=== PATIENT | male | born 1930 ===

== ENCOUNTER 2016-07-25 10:52 | Inpatient (IN) | payer MEDICARE ==
[2016-07-25 11:43] LABS: Basophils % (Auto) 0.7 % (0.0-1.8); Eosinophils % (Auto) 2.8 % (0.0-4.3); Hematocrit 35.2 % (35.5-45.6); Hemoglobin 11.2 gm/dl (11.8-15.2); Mean Corpuscular HGB Conc 32 % (32-34); Mean Corpuscular Hemoglobin 31 pg (28-32); Mean Corpuscular Volume 98 fl (84-94); Platelet Count 201 K/mm3 (140-440); Red Cell Distribution Width 15.9 % (13.2-15.2); White Blood Count 6.8 K/mm3 (4.5-11.0)
[2016-07-25 11:59] LABS: Calcium 8.7 mg/dL (8.4-10.2); Chloride 102.4 mmol/L (98-107); Potassium 4.5 mmol/L (3.6-5.0)
--- NOTE | 2016-07-25 11:59 | XRay Report ---
CHEST 2 VIEWS INDICATION: Shortness of breath. COMPARISON: None similar at this institution. FINDINGS: PA and lateral chest radiographs demonstrate bibasilar densities/pleural effusions obscuring the hemidiaphragms, left more than right. No overt CHF. Normal cardiomediastinal silhouette. Aortic knob calcifications. Mild biapical scarring/pleural thickening. Possible old healed granulomatous disease with a 3 mm peripheral right midlung granuloma. Multilevel thoracic spine degenerative spurring/DISH. Few upper abdominal radiodensities may possibly lie in the soft tissues posteriorly. CONCLUSION: Bibasilar opacities/effusions and few other findings, as above. Please also correlate clinically and with prior chest imaging, if available. Thank you for the opportunity to participate in this patient's care.
[2016-07-25] MEDS ORDERED: ECOTRIN PO ONE (12:55)
--- NOTE | 2016-07-25 13:03 | Emergency Department Report ---
ED Chest Pain HPI - General Chief Complaint: Chest Pain Stated Complaint: CHEST PAIN/SOB Time Seen by Provider: 07/25/16 12:45 Source: patient, RN notes reviewed Mode of arrival: Ambulatory Limitations: Language Barrier - History of Present Illness Initial Comments: 85-year-old male presents to the emergency department from his primary care physician's office complaining of chest pain. Patient states he has been having intermittent substernal chest pain for 2-3 weeks. Pain is described as heaviness. He denies radiation of the pain. He reports associated shortness of breath, but denies dizziness, diaphoresis, nausea, or vomiting. Patient is pain-free at this time. There are no other complaints. MD Complaint: chest pain -: Gradual, week(s) (3) Onset: during rest Pain Location: substernal Pain Radiation: none Severity: moderate Severity scale (0 -10): 6 Quality: heaviness Consistency: intermittent, now resolved Improves With: nothing Worsens With: nothing re: dyspnea. denies: nausea, vomting, diaphoresis Treatments Prior to Arrival: none Aspirin use within the Past 7 Days: (0) No - Related Data Allergies Allergy/AdvReac Type Severity Reaction Status Date / Time No Known Allergies Allergy Unverified 07/25/16 11:22 YASMEEN score - Yasmeen Score Age > 65: (1) Yes Aspirin use within the Past 7 Days: (0) No 3 or more CAD Risk Factors: (0) No 2 or more Angina events in past 24 hrs: (1) Yes Known CAD with more than 50% Stenosis: (0) No Elevated Cardiac Markers: (1) Yes ST Deviation Greater than 0.5mm: (0) No YASMEEN Score: 3 ED Review of Systems ROS: Stated complaint: CHEST PAIN/SOB Other details as noted in HPI Comment: All other systems reviewed and negative Respiratory: shortness of breath Cardiovascular: chest pain ED Past Medical Hx - Past Medical History Previous Medical History?: Yes Hx Hypertension: Yes Additional medical history: HIGH CHOLESTEROL - Surgical History Past Surgical History?: No - Family History Family history: no significant - Social History Smoking Status: Never Smoker Substance Use Type: None ED Physical Exam - General Limitations: Language Barrier General appearance: alert, in no apparent distress - Head Head exam: Present: atraumatic, normocephalic - Eye Eye exam: Present: normal appearance, PERRL, EOMI - ENT ENT exam: Present: normal exam, normal orophraynx, mucous membranes moist - Neck Neck exam: Present: normal inspection, full ROM. Absent: tenderness - Respiratory Respiratory exam: Present: normal lung sounds bilaterally. Absent: respiratory distress - Cardiovascular Cardiovascular Exam: Present: regular rate, normal rhythm, normal heart sounds - GI/Abdominal GI/Abdominal exam: Present: soft, normal bowel sounds. Absent: distended, tenderness - Extremities Exam Extremities exam: Present: normal inspection, full ROM. Absent: tenderness - Back Exam Back exam: Present: normal inspection, full ROM. Absent: tenderness - Neurological Exam Neurological exam: Present: alert, oriented X3. Absent: motor sensory deficit - Skin Skin exam: Present: warm, dry, intact ED Course Vital Signs 07/25/16 07/25/16 07/25/16 11:00 12:28 12:29 Temperature 97.1 F L 97.5 F L Pulse Rate 89 91 H Respiratory 18 25 H 25 H Rate Blood Pressure 116/76 Blood Pressure 126/75 [Left] O2 Sat by Pulse 100 98 98 Oximetry ED Medical Decision Making - Lab Data Result diagrams: 07/25/16 11:25 07/25/16 11:25 - EKG Data -: EKG Interpreted by Me EKG shows normal: sinus rhythm, axis, intervals, QRS complexes Rate: normal - EKG Data When compared to previous EKG there are: no significant change Interpretation: nonspecific ST-T wave dominik - Radiology Data Radiology results: image reviewed interpreted by me: Chest x-ray shows a small left lower lobe effusion. - Medical Decision Making Lab and imaging results reviewed and discussed with the patient. Patient does have some renal insufficiency and a slightly elevated troponin. There are no previous for comparison. I have spoken with Jerry Vaughan with a [facility]. Patient will be admitted by the hospitalist. - Differential Diagnosis ACS, atypical chest pain, pneumonia Critical care attestation.: If time is entered above; I have spent that time in minutes in the direct care of this critically ill patient, excluding procedure time. ED Disposition Clinical Impression: Chest pain at rest, Elevated troponin Disposition: OP ADMITTED IP TO THIS HOSP Is pt being admited?: Yes Condition: Stable Instructions: Chest Pain (ED) Referrals: PRIMARY CARE, [Primary Care Provider] - 3-5 Days Time of Disposition: 13:07
--- NOTE | 2016-07-25 13:32 | Admit Criteria Form ---
Admission Criteria Documentation: CHEST PAIN Clinical Indications for Admission to Inpatient Care (Place 'X' for any and all applicable criteria): Admission is indicated for chest pain and ANY ONE of the following(1)(2)(3)(4)(5 ): [ ]I. Angina with acute coronary syndrome (Also use Myocardial Infarction or Angina guideline) [ ]II. Hemodynamic instability [X ]III. Angina needing acute intervention as indicated by ALL of the following (11)(12): [X ]a) Unstable angina is present as indicated by angina that is ANY ONE of the following: [ ]i) New onset [ ]ii) Nocturnal [X ]iii) Prolonged at rest [ ]iv) Progressive [ X]b) Angina warrants acute intervention as indicated by ANY ONE of the following: [ ]i) Recurrent angina (e.g, not responding as previously to treatment) [ ]ii) Angina at rest or with low-level activities despite initial medical therapy [ ]iii) New or presumably new ST-segment depression on ECG [ ]iv) Signs or symptoms of heart failure (eg, dyspnea, pulmonary edema) [ ]v) New or worsening mitral regurgitation [ ]vi) Hemodynamic instability [ ]vii) Dangerous arrhythmia (eg, sustained ventricular tachycardia) [ ]viii) History of percutaneous coronary intervention within 6 months [ ]ix) History of coronary artery bypass graft surgery [X ]x) YASMEEN risk score of 2 or greater[A] [ ]xi) History of Diabetes(14) [ ]xii) High-risk cardiac ischemia findings on noninvasive testing (e.g, echocardiogram, treadmill testing, nuclear scan) [ ]xiii) Chronic renal insufficiency (ie, estimated GFR less than 60 mL/min/1.732m) [ ]xiv) Left ventricular ejection fraction less than 40% [ ]IV. Evidence of OK (eg, cardiac biomarkers positive, ST-segment elevation on ECG) also use Myocardial Infarction Criteria Form. [ ]V. Pulmonary edema [ ]. Respiratory distress [ ]VII. Chest pain indicative of serious diagnosis other than coronary artery disease (eg, aortic dissection) [X ]VIII. Contraindications and/or Inappropriate clinical situations for Observational Care in patients with Chest Pain, when ANY ONE of the following is required: [ ]a) Patient with risk factor for pulmonary embolism, acute coronary syndrome and myocardial infarction (18) [ ]b) Patient with Pulmonary embolism require an average LOS of 4.3 days, therefore emergency department observation management is inappropriate 18,23 [ ]c) Painful condition/s in the elderly, have the highest rate of recidivism after emergency department observation management (10.8%) 20,21,22 [X ]d) Elevated cardiac biomarker requires intensive and exhaustive care (19) [X ]IX. General contraindications and/or Inappropriate clinical situations for Observational Care in patients with Chest Pain, when ANY ONE of the following is required: [X ]a) Prediction of prolongation of LOS based on ANY ONE of the following may be considered as a contraindication for observational care 2, 3, 4, 5, 6, 7, 8, 9, 10, 11 [ X]i) Age > 65 yrs. [ ]ii) Patient arriving by ambulance [ ]iii) Patient with high acuity [ ]iv) Patient requiring vital sign monitoring [ ]v) Patient on IV medication [ ]b) Systolic blood pressures 180mmHg 3,12 [ ]c) Patient with altered mental status including delirium and other alteration of consciousness, (3) [ ]d) Patient whose discharge disposition will be to a fpc home or rehabilitation home should not be managed in Emergency Department Observation Unit. CMS rule requires 3 days hospital stay before such placement. 3,13 [ ]e) Patient with failure to thrive due to broad array of etiologies 3,16,17 [ ]f) Inability to ambulate 3,14 Extended stay beyond goal length of stay may be needed for (1)(28): [ ]a) Specific condition diagnosed after evaluation (eg, pulmonary embolism, aortic dissection) [ ]b) Unstable angina [ ]c) Continued suspicion of acute coronary syndrome with inability to complete needed cardiac evaluation (eg, patient clinically unable to undergo stress testing) [ ]d) Myocardial infarction (Contents from ANGINA and CHEST PAIN clinical indications for admission to inpatient care have been integrated in this form) The original [employer] [email or web address] content created by [employer] has been revised. The portions of the content which have been revised are identified through the use of italic text or in bold, and [employer] has neither reviewed nor approved the modified material. All other unmodified content is copyright [facility] [employer]. Please see references footnoted in the original [facility] edition 2016 Admission Criteria Met: Yes
--- NOTE | 2016-07-25 15:48 | Consultation ---
History of Present Illness Consult date: 07/25/16 Consult reason: elevated troponin History of present illness: This is a frail 85yr old [place] male who was sent from [facility] with reported shortness of breath and chest pain. His ECG shows a sinus rhythm with nonspecifice Twave abnormalities. Labs notable for a mild elevated troponin of 0.06 likely in the setting of acute renal failure, creatinine of 1.8. Cardiology consultation requested for elevated troponin. Medications and Allergies Allergies Allergy/AdvReac Type Severity Reaction Status Date / Time No Known Allergies Allergy Unverified 07/25/16 11:22 Home Medications Medication Instructions Recorded Confirmed Last Taken Type Losartan [Cozaar] 50 mg PO QDAY 07/25/16 07/25/16 Unknown History Memantine HCl [Namenda] 5 mg PO DAILY 07/25/16 07/25/16 Unknown History [place]-3 Fatty Acids/Fish Oil [Fish 1 each PO DAILY 07/25/16 07/25/16 Unknown History Oil] Polyethylene Glycol 3350 [Miralax 17 gm PO QDAY 07/25/16 07/25/16 Unknown History 3350] Physical Examination Vital Signs Temp Pulse Resp BP Pulse Ox 97.1 F L 89 18 116/76 100 07/25/16 11:00 07/25/16 11:00 07/25/16 11:00 07/25/16 11:00 07/25/16 11:00 General appearance: no acute distress HEENT: Positive: PERRL Neck: Positive: trachea midline Cardiac: Positive: Reg Rate and Rhythm Results 07/25/16 11:25 07/25/16 11:25 Assessment and Plan Chest pain Acute renal failure Non-specific elevated troponin
--- NOTE | 2016-07-26 00:02 | Event Note ---
Date: 07/25/16 See
[2016-07-26] MEDS ORDERED: SODIUM CHLORIDE FLUSH SYRINGE 10 ML IV PRN (00:52)
[2016-07-26 07:28] LABS: Creatine Kinase MB 2.1 ng/mL (0.0-4.0)
[2016-07-26] MEDS ORDERED: COZAAR PO SCH (10:00)
--- NOTE | 2016-07-26 10:51 | Progress Note ---
Assessment and Plan Chest pain Shortness of breath Acute renal failure Non-specific elevated troponin Plan: Echo and Persantine stress thallium test today, for further cardiac evaluation. Subjective Date of service: 07/26/16 Interval history: Patient is resting in bed comfortably. He reports shortness of breath and chest pain overnight. Objective Vital Signs Temp Pulse Resp BP Pulse Ox 07/26/16 08:00 97.5 F L 106 H 18 143/86 97 07/26/16 05:24 98.0 F 104 H 20 130/87 97 07/26/16 00:48 97.5 F L 95 H 20 126/78 97 07/25/16 20:38 97.4 F L 94 H 22 124/68 97 07/25/16 18:26 135/77 - Physical Examination General: No Apparent Distress HEENT: Positive: PERRL Neck: Positive: trachea midline Cardiac: Positive: Reg Rate and Rhythm - Labs and Meds Cardiac Enzymes 07/26/16 07/26/16 Range/Units 01:08 05:54 CK-MB (CK-2) 2.0 2.1 (0.0-4.0) ng/mL
[2016-07-26] MEDS ORDERED: LEXISCAN IV ONE (12:00)
[2016-07-26] MEDS: APRESOLINE PO SCH ×2 (14:51→21:32)
[2016-07-26] MEDS: FISH OIL PO SCH (14:52)
[2016-07-26] MEDS: MIRALAX 3350 PO SCH (14:52)
[2016-07-26] MEDS: LASIX IV SCH (14:52)
[2016-07-26] MEDS: NAMENDA XR PO SCH (14:52)
--- NOTE | 2016-07-26 17:59 | Progress Note ---
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% --Hypertension well-controlled Continue Cozaar and metoprolol and Lasix When necessary hydralazine --Dementia Continue Namenda, supportive care --DVT prophylaxis with Lovenox Closely monitor the patient adjust the management as needed Cardiology evaluation noted and appreciated History Interval history: Patient and evaluated medical records reviewed No new events reported by the nursing staff Discussed with the patient through a bilingual family member Admitted with chest pain, positive cardiac enzymes/non-ST elevation RI Schedule for stress test to rule out reversible ischemia Patient alert and awake not in acute distress Vital signs reviewed, stable Hospitalist Physical - Constitutional Vitals: Temp Pulse Resp BP Pulse Ox 97.5 F L 110 H 22 142/88 95 07/26/16 11:00 07/26/16 11:24 07/26/16 10:00 07/26/16 11:24 07/26/16 10:00 General appearance: Present: no acute distress, well-nourished - EENT Eyes: Present: PERRL, EOM intact - Neck Neck: Present: supple, normal ROM - Respiratory Respiratory effort: labored Respiratory: bilateral: diminished, negative: rales, rhonchi, wheezing - Cardiovascular Rhythm: regular Heart Sounds: Present: S1 & S2 - Extremities Extremities: no ischemia, pulses intact, pulses symmetrical Peripheral Pulses: within normal limits - Abdominal General gastrointestinal: soft, non-tender, non-distended, normal bowel sounds - Integumentary Integumentary: Present: clear, warm - Psychiatric Psychiatric: appropriate mood/affect, cooperative - Neurologic Neurologic: CNII-XII intact, moves all extremities Results - Labs CBC & Chem 7: 07/25/16 11:25 07/25/16 11:25 Labs: Laboratory Last Values WBC 6.8 K/mm3 (4.5-11.0) 07/25/16 11:25 RBC 3.60 M/mm3 (3.65-5.03) L 07/25/16 11:25 Hgb 11.2 gm/dl (11.8-15.2) L 07/25/16 11:25 Hct 35.2 % (35.5-45.6) L 07/25/16 11:25 MCV 98 fl (84-94) H 07/25/16 11:25 MCH 31 pg (28-32) 07/25/16 11:25 MCHC 32 % (32-34) 07/25/16 11:25 RDW 15.9 % (13.2-15.2) H 07/25/16 11:25 Plt Count 201 K/mm3 (140-440) 07/25/16 11:25 Lymph % (Auto) 17.0 % (13.4-35.0) 07/25/16 11:25 Mcdowell % (Auto) 15.3 % (0.0-7.3) H 07/25/16 11:25 Eos % (Auto) 2.8 % (0.0-4.3) 07/25/16 11:25 Baso % (Auto) 0.7 % (0.0-1.8) 07/25/16 11:25 Lymph # 1.1 K/mm3 (1.2-5.4) L 07/25/16 11:25 Mcdowell # 1.0 K/mm3 (0.0-0.8) H 07/25/16 11:25 Eos # 0.2 K/mm3 (0.0-0.4) 07/25/16 11:25 Baso # 0.1 K/mm3 (0.0-0.1) 07/25/16 11:25 Seg Neutrophils % 64.2 % (40.0-70.0) 07/25/16 11:25 Seg Neutrophils # 4.3 K/mm3 (1.8-7.7) 07/25/16 11:25 Sodium 140 mmol/L (137-145) 07/25/16 11:25 Potassium 4.5 mmol/L (3.6-5.0) 07/25/16 11:25 Chloride 102.4 mmol/L (98-107) 07/25/16 11:25 Carbon Dioxide 22 mmol/L (22-30) 07/25/16 11:25 Anion Gap 20 mmol/L 07/25/16 11:25 BUN 36 mg/dL (9-20) H 07/25/16 11:25 Creatinine 1.8 mg/dL (0.8-1.5) H 07/25/16 11:25 Estimated GFR 36 ml/min 07/25/16 11:25 BUN/Creatinine Ratio 20.00 % 07/25/16 11:25 Glucose 154 mg/dL (75-100) H 07/25/16 11:25 Calcium 8.7 mg/dL (8.4-10.2) 07/25/16 11:25 Total Creatine Kinase 58 units/L (55-170) 07/26/16 05:54 CK-MB (CK-2) 2.1 ng/mL (0.0-4.0) 07/26/16 05:54 CK-MB (CK-2) Rel Index 3.6 (0-4) 07/26/16 05:54 Troponin T 0.059 ng/mL (0.00-0.029) H 07/26/16 05:54 Triglycerides 238 mg/dL (2-149) H 07/25/16 11:25 Cholesterol 210 mg/dL (50-199) H 07/25/16 11:25 LDL Cholesterol Direct 135 mg/dL (50-130) H 07/25/16 11:25 HDL Cholesterol 28 mg/dL (40-59) L 07/25/16 11:25 Cholesterol/HDL Ratio 7.50 % 07/25/16 11:25
--- NOTE | 2016-07-26 18:02 | Event Note ---
Date: 07/26/16 Stress test is negative for reversible ischemia Echocardiogram global left ventricle systolic function severely decreased Ejection fraction than 15-20% Will optimize anti-failure medications Physical therapy evaluation and treatment Possible discharge in 1-2 days with home health if stable
--- NOTE | 2016-07-26 18:57 | History and Physical Report ---
HISTORY OF PRESENT ILLNESS: An 85-year-old male who presents to the Emergency Department from the primary care and was complaining of chest pain. The patient states he has been having intermittent substernal chest pain for 3 weeks. Heaviness. Pain is about 6 on a scale of 1 to 10. Denies dizziness, diaphoresis, nausea, vomiting. The patient is being treated in the ER. The patient's YASMEEN score is 3. Positive YASMEEN score is ____ angina mentioned in the past 24 hours, elevated cardiac markers and age more than 65. REVIEW OF SYSTEMS: Other than chest pain review of systems is essentially negative. All 14 systems reviewed. PAST MEDICAL HISTORY: Significant for hypertension, high cholesterol. PAST SURGICAL HISTORY: None. FAMILY HISTORY: No hypertension, no diabetes. SOCIAL HISTORY: Does not smoke. No alcohol, no recreational drugs. CURRENT MEDICATIONS: None. PHYSICAL EXAMINATION: GENERAL: Elderly male, cooperative during examination. VITAL SIGNS: Blood pressure 116/76, temperature 97.1, pulse is 89, respirations are 18. HEENT: Unremarkable. Pupils equal and reactive. NECK: Supple, no lymphadenopathy, no thyromegaly. LUNGS: Clear to auscultation and percussion. Good air entry. CARDIOVASCULAR: S1, S2 heard. No gallop, no murmur, no rub. Apical impulse in left fifth intercostal space and midclavicular line. ABDOMEN: Soft and benign. No hepatosplenomegaly. No guarding, no rigidity. Hernial orifices are normal. EXTREMITIES: Good pedal pulses. No pedal edema. CENTRAL NERVOUS SYSTEM: Alert and oriented x4, nonfocal exam. SKIN: Normal. IMAGING: EKG shows normal sinus rhythm, normal axis, normal QRS complexes. Nonspecific ST-T wave changes. Chest x-ray shows a small left lower lobe infiltrate with effusion. LABORATORY DATA: White count is 6800, H and H is 11.2 and 35.2, platelet count is 201,000. Sodium is 140, potassium is 4.5, chloride is 102, bicarbonate is 22, BUN and creatinine 36 and 1.8, glucose is 154. Troponin is 0.066. Triglyceride 238, cholesterol is 210, LDL is 135. Second troponin is 0.069. ASSESSMENT AND PLAN: 1. Chest pain, rule out myocardial infarction, chest pain protocol. The patient did get an echocardiogram ____. 2. Elevated troponin. Cardiology consult requested. Aspirin and beta blockers added. MITA inhibitors. Stop the statin. 3. Hypertension, well controlled. Continue metoprolol and Lasix. 4. Nonischemic cardiomyopathy. Continue the patient on Lasix. 5. Hyperlipidemia. Continue lipid lowering agent. 6. Deep venous thrombosis prophylaxis, Lovenox 40 mg subcutaneous daily. JOB# [id number] VSM/NTS
[2016-07-26] MEDS: AMBIEN PO PRN (21:32)
[2016-07-26] MEDS: LOVENOX SUB-Q SCH (21:34)
[2016-07-26] MEDS ORDERED: LOVENOX SUB-Q SCH ×2 (22:00)
--- NOTE | 2016-07-27 04:09 | Treadmill Report ---
INDICATION: Chest pain. ORDERING PHYSICIAN: Gosia Morales M.D. FINDINGS: The left ventricular cavity is dilated. There is severe global left ventricular hypokinesis with an ejection fraction measured at 15%. There is no scintigraphic evidence of myocardial ischemia. There is evidence of a small fixed apical wall defect. IMPRESSION: 1. No scintigraphic evidence of myocardial ischemia. 2. Dilated and hypokinetic left ventricle with an ejection fraction measuring 15%. 3. Small fixed apical wall defect. 4. Findings are consistent with nonischemic cardiomyopathy. JOB# [id number] FRED/NATASHA
--- NOTE | 2016-07-27 07:19 | Progress Note ---
Assessment and Plan Non-ischemic cardiomyopathy with EF 15-20% Acute renal failure Non-specific elevated troponin NSVT Plan: Gentle diuresis as tolerated Keep Mr>2 and K>4 strict I/Os Continue medical therapy with ARB and metoprolol d/c hydralazine add spironolactone as creatinine less than 2. monitor potassium. Maximize medications as tolerated Subjective Date of service: 07/27/16 Interval history: No acute events. Resting comfortably. no chest pain or SOB. Telemetry shows periods of NSVT Objective Vital Signs Temp Pulse Pulse Resp BP BP Pulse Ox 07/27/16 06:31 86 07/27/16 04:00 98.2 F 91 H 18 96/62 96 07/27/16 00:00 98.1 F 87 18 138/72 97 07/26/16 21:32 86 109/60 07/26/16 20:00 97.8 F 86 18 109/60 98 07/26/16 18:58 87 07/26/16 17:51 130/71 07/26/16 11:24 110 H 142/88 07/26/16 11:23 112 H 142/93 07/26/16 11:22 114 H 145/63 07/26/16 11:21 109 H 132/63 07/26/16 11:20 109 H 134/82 07/26/16 11:19 104 H 137/84 07/26/16 11:00 97.5 F L 129/68 07/26/16 10:00 103 H 22 95 07/26/16 08:00 97.5 F L 106 H 18 143/86 97 - Physical Examination General: No Apparent Distress HEENT: Positive: PERRL Neck: Positive: trachea midline - Labs and Meds Cardiac Enzymes 07/26/16 Range/Units 05:54 CK-MB (CK-2) 2.1 (0.0-4.0) ng/mL
[2016-07-27] MEDS: APRESOLINE PO SCH (07:57)
[2016-07-27 08:58] LABS: BUN/Creatinine Ratio 18.18; Calcium 8.8 mg/dL (8.4-10.2); Chloride 100.4 mmol/L (98-107)
--- NOTE | 2016-07-27 09:28 | Progress Note ---
Assessment and Plan Assessment and plan: --Acute coronary syndrome Initiate acute HI protocol, echocardiogram Mild elevation of troponin, continue current cardiac medications Nuclear stress test for reversible ischemia Aspirin and beta blockers MITA inhibitor's nitrates and statins --Acute on chronic systolic congestive heart failure Ejection fraction 15-20%, Spiranolactone added, DC Cozaar in view of elevated creatinine of more than 2 --Nonischemic cardiomyopathy Ejection fraction 15-20%, continue above management --Acute renal failure secondary to vasomotor nephropathy And diuretic use, reduce Lasix dose, closely monitor renal function, avoid nephrotoxic medications:, Consider nephrology evaluation if no improvement --Hypertension; stable on medications And when necessary hydralazine --Dementia continue Namenda, Supportive care --DVT prophylaxis with Lovenox Closely monitor the patient adjust the management as needed Possible discharge in 1-2 days if stable, home with home health Cardiology evaluation noted and appreciated Patient's condition treatment plan discussed in detail with the patient as well as the son who is at the bedside History Interval history: Patient seen and evaluated in his room this morning medical records reviewed No new events reported by the nursing staff Patient complains of mild shortness of breath Cardiology adjusted the medications Alert awake oriented 3 not in acute distress Hospitalist Physical - Constitutional Vitals: Temp Pulse Resp BP Pulse Ox 98.2 F 84 18 96/62 96 07/27/16 04:00 07/27/16 08:33 07/27/16 04:00 07/27/16 07:57 07/27/16 04:00 General appearance: Present: no acute distress, well-nourished - EENT Eyes: Present: PERRL, EOM intact - Neck Neck: Present: supple, normal ROM - Respiratory Respiratory effort: normal Respiratory: bilateral: diminished, rales, negative: rhonchi, wheezing - Cardiovascular Rhythm: regular Heart Sounds: Present: S1 & S2 - Extremities Extremities: no ischemia, pulses intact, pulses symmetrical Peripheral Pulses: within normal limits - Abdominal General gastrointestinal: soft, non-tender, non-distended, normal bowel sounds - Integumentary Integumentary: Present: clear, warm - Psychiatric Psychiatric: appropriate mood/affect, cooperative - Neurologic Neurologic: CNII-XII intact, moves all extremities Results - Labs CBC & Chem 7: 07/25/16 11:25 07/27/16 08:02 Labs: Laboratory Last Values WBC 6.8 K/mm3 (4.5-11.0) 07/25/16 11:25 RBC 3.60 M/mm3 (3.65-5.03) L 07/25/16 11:25 Hgb 11.2 gm/dl (11.8-15.2) L 07/25/16 11:25 Hct 35.2 % (35.5-45.6) L 07/25/16 11:25 MCV 98 fl (84-94) H 07/25/16 11:25 MCH 31 pg (28-32) 07/25/16 11:25 MCHC 32 % (32-34) 07/25/16 11:25 RDW 15.9 % (13.2-15.2) H 07/25/16 11:25 Plt Count 201 K/mm3 (140-440) 07/25/16 11:25 Lymph % (Auto) 17.0 % (13.4-35.0) 07/25/16 11:25 Mclean % (Auto) 15.3 % (0.0-7.3) H 07/25/16 11:25 Eos % (Auto) 2.8 % (0.0-4.3) 07/25/16 11:25 Baso % (Auto) 0.7 % (0.0-1.8) 07/25/16 11:25 Lymph # 1.1 K/mm3 (1.2-5.4) L 07/25/16 11:25 Mclean # 1.0 K/mm3 (0.0-0.8) H 07/25/16 11:25 Eos # 0.2 K/mm3 (0.0-0.4) 07/25/16 11:25 Baso # 0.1 K/mm3 (0.0-0.1) 07/25/16 11:25 Seg Neutrophils % 64.2 % (40.0-70.0) 07/25/16 11: Seg Neutrophils # 4.3 K/mm3 (1.8-7.7) 07/25/16 11:25 Sodium 138 mmol/L (137-145) 07/27/16 08:02 Potassium 4.0 mmol/L (3.6-5.0) 07/27/16 08:02 Chloride 100.4 mmol/L (98-107) 07/27/16 08:02 Carbon Dioxide 22 mmol/L (22-30) 07/27/16 08:02 Anion Gap 20 mmol/L 07/27/16 08:02 BUN 40 mg/dL (9-20) H 07/27/16 08:02 Creatinine 2.2 mg/dL (0.8-1.5) H 07/27/16 08:02 Estimated GFR 28 ml/min 07/27/16 08:02 BUN/Creatinine Ratio 18.18 % 07/27/16 08:02 Glucose 123 mg/dL (75-100) H 07/27/16 08:02 Calcium 8.8 mg/dL (8.4-10.2) 07/27/16 08:02 Total Creatine Kinase 58 units/L (55-170) 07/26/16 05:54 CK-MB (CK-2) 2.1 ng/mL (0.0-4.0) 07/26/16 05:54 CK-MB (CK-2) Rel Index 3.6 (0-4) 07/26/16 05:54 Troponin T 0.059 ng/mL (0.00-0.029) H 07/26/16 05:54 Triglycerides 238 mg/dL (2-149) H 07/25/16 11:25 Cholesterol 210 mg/dL (50-199) H 07/25/16 11:25 LDL Cholesterol Direct 135 mg/dL (50-130) H 07/25/16 11:25 HDL Cholesterol 28 mg/dL (40-59) L 07/25/16 11:25 Cholesterol/HDL Ratio 7.50 % 07/25/16 11:25
[2016-07-27] MEDS ORDERED: ALDACTONE PO SCH (10:00)
[2016-07-27] MEDS: NAMENDA XR PO SCH (10:25)
[2016-07-27] MEDS: TOPROL XL PO SCH (10:25)
[2016-07-27] MEDS: BABY ASPIRIN PO SCH (10:25)
[2016-07-27] MEDS: MIRALAX 3350 PO SCH (10:25)
[2016-07-27] MEDS: LASIX IV SCH ×2 (10:25→16:44)
[2016-07-27] MEDS: FISH OIL PO SCH (10:26)
[2016-07-27] MEDS: LOVENOX SUB-Q SCH (22:07)
[2016-07-27] MEDS: AMBIEN PO PRN (22:08)
[2016-07-28 06:03] LABS: BUN/Creatinine Ratio 21.3; Calcium 8.7 mg/dL (8.4-10.2); Chloride 99.2 mmol/L (98-107); Magnesium 2.4 mg/dL (1.7-2.3); Potassium 4.4 mmol/L (3.6-5.0)
--- NOTE | 2016-07-28 08:20 | Progress Note ---
Assessment and Plan Non-ischemic cardiomyopathy with EF 15-20% Acute renal failure Non-specific elevated troponin NSVT Plan: Gentle diuresis as tolerated Keep Mg > 2 and K > 4 strict I/Os Continue medical therapy with ARB and metoprolol d/c hydralazine add spironolactone as creatinine less than 2. monitor potassium. Maximize medications as tolerated Subjective Date of service: 07/28/16 Interval history: No acute events. Resting comfortably. no chest pain or SOB. Telemetry shows periods of NSVT Objective Vital Signs Temp Pulse Pulse Resp BP Pulse Ox 07/28/16 05:00 97.6 F 73 20 95/59 98 07/28/16 01:17 84 07/28/16 01:00 98.2 F 66 20 94/59 93 07/27/16 19:00 97.5 F L 62 20 95/57 97 07/27/16 16:00 98.3 F 67 18 92/51 97 07/27/16 12:00 97.6 F 75 20 88/50 95 07/27/16 08:33 84 - Physical Examination General: No Apparent Distress HEENT: Positive: PERRL Neck: Positive: trachea midline - Labs and Meds Comprehensive Metabolic Panel 07/27/16 07/28/16 Range/Units 08:02 04:30 Sodium 138 136 L (137-145) mmol/L Potassium 4.0 4.4 (3.6-5.0) mmol/L Chloride 100.4 99.2 (98-107) mmol/L Carbon Dioxide 22 19 L (22-30) mmol/L BUN 40 H 49 H (9-20) mg/dL Creatinine 2.2 H 2.3 H (0.8-1.5) mg/dL Glucose 123 H 90 (75-100) mg/dL Calcium 8.8 8.7 (8.4-10.2) mg/dL
[2016-07-28] MEDS: TOPROL XL PO SCH (10:45)
[2016-07-28] MEDS: LASIX IV SCH (10:45)
[2016-07-28] MEDS: NAMENDA XR PO SCH (10:45)
[2016-07-28] MEDS: MIRALAX 3350 PO SCH (10:45)
[2016-07-28] MEDS: BABY ASPIRIN PO SCH (10:45)
[2016-07-28] MEDS: FISH OIL PO SCH (10:45)
[2016-07-28 11:24] VITALS: BP 102/54
--- NOTE | 2016-07-28 12:41 | Discharge Summary ---
Providers - Providers Date of Admission: 07/25/16 13:07 Date of discharge: 07/28/16 Attending physician: ELIGIO ORLANDO 07/26/16 Consult to Cardiac Rehabilitation [CONS] Routine Reason For Exam: Phase I 07/26/16 18:07 Physical Therapy Evaluation and Treat [CONS] Routine Comment: Reason For Exam: unsteady gait/debility Primary care physician: [facility] Hospitalization Reason for admission: worsening shortness of breath and chest pain Condition: Stable Pertinent studies: Chest x-ray; bibasilar opacities effusions Echocardiogram; left ventricle systolic function severely decreased ejection fraction 15-20% Stress test; negative for reversible ischemia, dilated left ventricle ejection fraction 15% ,small fixed plical defect ,nonischemic cardiomyopathy Hospital course: Final diagnosis; --Acute coronary syndrome --Acute on chronic systolic congestive heart failure EF 15-20% --Nonischemic cardiomyopathy --Acute renal failure secondary to vasomotor nephropathy --Hypertension; stable on medications --Dementia continue Namenda, Supportive care Brief history and hospital course; Very pleasant 85-year-old [place] male patient with significant past medical history of ischemic cardiomyopathy and systolic dysfunction was admitted through emergency room with worsening shortness of breath and chest pain Patient was initially evaluated noted to be in acute on chronic systolic congestive heart failure Admitted to the hospital symptomatically managed Evaluated by senior facilities manager, patient had echocardiogram nuclear stress test the findings of the chest as mentioned above Patient had acute renal failure due to use of diuretics, dose was adjusted Cozaar was discontinued in view of acute renal failure Patient's symptoms significantly improved Medications optimized Today patient is comfortable in bed alert awake responding appropriately Vital signs are stable [id number] evaluation physical examination done by me prior to discharge did not show any new changes Patient's creatinine today is 2.2, Lasix was held Advise gentle hydration Patient will recheck BMP and renal function in 3 days at PMDs office, if within normal limits resume Cozaar Disposition: DC/TX HOME UNDER HOME HEALTH Time spent for discharge: 32 min Core Measure Documentation - Palliative Care Palliative Care/ Comfort Measures: Not Applicable - Core Measures Any of the following diagnoses?: heart failure - Heart Failure Discharge Requirements MITA/ARB for LVSD if EF <40%: No Reason for no MITA/ARB: Renal impairment Beta rohit at discharge: Yes Exam - Constitutional Vitals: Temp Pulse Resp BP Pulse Ox 97.9 F 68 16 102/54 100 07/28/16 09:50 07/28/16 10:11 07/28/16 09:50 07/28/16 09:50 07/28/16 09:50 General appearance: Present: no acute distress, well-nourished - EENT Eyes: Present: PERRL, EOM intact - Neck Neck: Present: supple, normal ROM - Respiratory Respiratory effort: normal Respiratory: bilateral: diminished, negative: rales, rhonchi, wheezing - Cardiovascular Rhythm: regular Heart Sounds: Present: S1 & S2 - Extremities Extremities: no ischemia, pulses intact, pulses symmetrical Peripheral Pulses: within normal limits - Abdominal General gastrointestinal: Present: soft, non-tender, non-distended, normal bowel sounds - Integumentary Integumentary: Present: clear, warm - Musculoskeletal Musculoskeletal: strength equal bilaterally, generalized weakness - Psychiatric Psychiatric: appropriate mood/affect, cooperative - Neurologic Neurologic: CNII-XII intact, moves all extremities Plan Activity: advance as tolerated, fall precautions Diet: low salt Additional Instructions: If you have chest pain or shortness of breath contact M.D. or go to emergency room. Check BMP at PMD office, if creatinine is within normal limits, resume Cozaar Follow up with: PRIMARY CAREMD [Primary Care Provider] - 3-5 Days JILL LEE MD [Staff Physician] - 7 Days Forms: Discharge Signature Page Prescriptions: Metoprolol Xl [Metoprolol SUCCINATE ER TAB] 50 mg PO QDAY #30 tablet
== END 2016-07-28 14:38 | disposition home health service (06) | DRG 291 ==
LOC: ED 10:52 → 4A 13:07
PROVIDERS: ADMIT Internal Medicine; ATTEND Internal Medicine
DX: I11.0 Hypertensive heart disease with heart failure (principal); N17.0 Acute kidney failure with tubular necrosis; I47.1 Supraventricular tachycardia; I24.9 Acute ischemic heart disease, unspecified; I50.23 Acute on chronic systolic (congestive) heart failure; I42.9 Cardiomyopathy, unspecified; F03.90 Unspecified dementia, unspecified severity, without behavioral disturbance, psychotic disturbance, mood disturbance, and anxiety; E78.5 Hyperlipidemia, unspecified; T50.2X5A Adverse effect of carbonic-anhydrase inhibitors, benzothiadiazides and other diuretics, initial encounter
CPT/HCPCS: 36415; 71020; 78452; 80048; 80061; 82550; 82553; 83735; 84484; 85025; 93005; 93010; 93017; 93306; A9502; G8978-GP; G8979-GP; J1650; J1940; J2785